=== PATIENT | male | born 1945 | race Caucasian/White ===

== ENCOUNTER 2018-06-07 18:39 | Observation (INO) | payer MEDICARE, BC ==
[2018-06-07 19:13] LABS: #Basophils 0.1 thou/uL (0.0-0.2); #Eosinphils 0.3 thou/uL (0.0-0.7); #Lymphocytes 2.4 thou/uL (1.20-3.40); #Monocytes 0.8 thou/uL (0.11-0.59); #Neutrophils 3.4 thou/uL (1.40-6.50); %Basophils 1.4 % (0.0-1.0); %Eosinophils 4.1 % (0.0-10.0); %Lymphocytes 35.1 % (21.0-51.0); %Monocytes 11.2 % (0.0-10.0); %Neutrophils 48.2 % (42.0-75.0); Hemoglobin 16.9 g/dL (14.0-18.0); Mean Corpuscular HGB CONC 33.3 g/dL (32.0-36.0); Mean Corpuscular Hemoglobin 29.5 pg (27.0-31.0); Mean Corpuscular Volume 88.6 fL (78.0-98.0); Mean Platelet Volume 8.1 fL (7.4-10.4); Platelet Count 182 thou/uL (130-400); RBC Distribution Width 12.8 % (11.5-14.5)
--- NOTE | 2018-06-07 19:26 | RAD ---
CHEST ONE VIEW: History: Palpitations. Comparison: 05-25-17 FINDINGS: Cardiac silhouette is magnified by projection. Pulmonary vasculature upper limits of normal. Mediasti num is midline. No lobar consolidation or evidence of pneumothorax. Dystrophic calcification inferior to the distal right clavicle is unchanged. IMPRESSION: Chronic type findings are stable. No active cardiopulmonary abnormalities are demonstrated. POS: [facility]
[2018-06-07 19:38] LABS: ALT (SGPT) 17 U/L (8-55); AST (SGOT) 22 U/L (5-34); Albumin 4.3 g/dL (3.4-4.8); Alkaline Phosphatase 72 U/L (40-150); Anion Gap 15 mmol/L (10-20); BUN (Urea Nitrogen) 25 mg/dL (8.4-25.7); Bilirubin, Total 0.4 mg/dL (0.2-1.2); CK (CPK) 112 U/L (30-200); Calc. Creatinine Clearance 0 mL/min (70-130); Calcium 9.4 mg/dL (7.8-10.44); Carbon Dioxide 19 mmol/L (23-31); Chloride 110 mmol/L (98-107); Estimated GFR-MDRD 48; Globulin 3.6 g/dL (2.4-3.5); Glucose 97 mg/dL (83-110); Magnesium 2.8 mg/dL (1.6-2.6); Potassium 4.5 mmol/L (3.5-5.1); Protein, Total 7.9 g/dL (5.8-8.1); Sodium 139 mmol/L (136-145)
[2018-06-07 19:39] LABS: CKMB 1.8 ng/mL (0-6.6); Troponin I Less than 0.010 ng/mL (< 0.028)
[2018-06-07] MEDS ORDERED: Milk Of Magnesia 30 ML UDCUP PO PRN (23:05)
[2018-06-07] MEDS ORDERED: Ondansetron HCl/PF 4 MG/2 ML Vial IVP PRN (23:05)
[2018-06-07] MEDS ORDERED: Ondansetron ODT 4 MG TAB PO PRN (23:05)
[2018-06-07] MEDS ORDERED: Bisacodyl 5 MG TAB PO PRN (23:05)
[2018-06-07] MEDS ORDERED: Acetaminophen 325 MG TAB PO PRN (23:05)
[2018-06-07] MEDS ORDERED: Senokot 8.6 MG TAB PO PRN (23:05)
[2018-06-08 00:05] LABS: Troponin I Less than 0.010 ng/mL (< 0.028)
[2018-06-08] MEDS: Sodium Chloride 0.9% 1,000 ML IV SCH ×2 (00:54→10:20)
[2018-06-08 01:01] VITALS: BMI 29.3
[2018-06-08 02:24] LABS: #Basophils 0.1 thou/uL (0.0-0.2); #Eosinphils 0.3 thou/uL (0.0-0.7); #Lymphocytes 2.3 thou/uL (1.20-3.40); #Monocytes 0.6 thou/uL (0.11-0.59); #Neutrophils 3.3 thou/uL (1.40-6.50); %Eosinophils 4.5 % (0.0-10.0); %Lymphocytes 35.1 % (21.0-51.0); %Monocytes 8.5 % (0.0-10.0); %Neutrophils 50.9 % (42.0-75.0); Mean Corpuscular HGB CONC 33.6 g/dL (32.0-36.0); Mean Corpuscular Hemoglobin 29.9 pg (27.0-31.0); Mean Corpuscular Volume 89.2 fL (78.0-98.0); Platelet Count 168 thou/uL (130-400); RBC Distribution Width 12.7 % (11.5-14.5); Red Blood Cell (RBC) Count 5.36 mill/uL (4.70-6.10); White Blood Cell (WBC) Count 6.5 thou/uL (4.8-10.8)
[2018-06-08 02:48] LABS: Troponin I Less than 0.010 ng/mL (< 0.028)
[2018-06-08 03:20] LABS: Albumin 3.9 g/dL (3.4-4.8); Anion Gap 12 mmol/L (10-20); BUN (Urea Nitrogen) 23 mg/dL (8.4-25.7); BUN/Creatinine Ratio 23.23; Calc. Creatinine Clearance 87 mL/min (70-130); Calcium 8.8 mg/dL (7.8-10.44); Carbon Dioxide 25 mmol/L (23-31); Chloride 107 mmol/L (98-107); Estimated GFR-MDRD 74; Glucose 144 mg/dL (83-110); Potassium 4.2 mmol/L (3.5-5.1); Sodium 140 mmol/L (136-145)
--- NOTE | 2018-06-08 06:52 | HP ---
CHIEF COMPLAINT: Palpitations. HISTORY OF PRESENT ILLNESS: This is a 73-year-old white male with no significant past medical history who presented with palpitations which per the patient started on the day of admission. The patient states that he had been working more than his usual self and he has not been drinking a lot of water and thinks that has probably triggered him to have these palpitations. In the past, patient states that he used to drink a lot of coffee and because of the coffee that he drinks a lot, his palpitations and arrhythmias has been associated with, but this time around patient states that he has not had any coffee, but rather he has been working too hard and he thinks that is the event that has triggered the symptoms of arrhythmias. REVIEW OF SYSTEMS: Positive for palpitations, anxiety, headache, otherwise as documented in the HPI, all systems were reviewed and are negative. PAST MEDICAL HISTORY: The patient has no past medical history. PAST SURGICAL HISTORY: Appendectomy and tonsillectomy. PSYCHIATRIC HISTORY: No psych history. SOCIAL HISTORY: Patient denies alcohol use, denies any illicit drug use. Denies smoking. FAMILY HISTORY: Reviewed and noncontributory. ALLERGIES: No known drug allergies. CURRENT MEDICATIONS: The patient takes aspirin 81 mg. PHYSICAL EXAMINATION: VITAL SIGNS: 157/69, pulse 59, respiratory rate of 16, temperature 98. GENERAL APPEARANCE: Patient appears his stated age, lying in bed comfortably, speaking in full sentences, does not appear to be in any acute distress. HEENT: Normocephalic, atraumatic. Pupils are equally round and reactive to light. Extraocular movements are intact. No scleral icterus. NECK: Supple. Trachea is midline. No JVD. LUNGS: Clear to auscultation bilaterally. No wheezing, no rales, no rhonchi is appreciated. CARDIAC: Occasional irregular heartbeat noted, otherwise no murmurs appreciated. No rubs, no gallops. ABDOMEN: Soft, nontender, nondistended. Bowel sounds are positive in all quadrants. No pulsatile masses. No guarding, no rigidity. BACK: Normal back. NEUROLOGIC: Cranial nerves II-XII grossly intact. No neurologic deficits noted. SKIN: Warm, dry, and intact. ED COURSE: Patient was given aspirin and normal saline. IMAGING DATA: Chest x-ray which was done on patient showed chronic type findings which are stable. No active cardiopulmonary process demonstrated. LABORATORY DATA: WBC 7.0, hemoglobin 16.9, hematocrit is 50.6, platelets 182. Sodium 139, potassium 4.5, chloride 110, carbon dioxide 19, creatinine is 1.43 and magnesium is 2.8. ASSESSMENT AND PLAN: 1. This is a 73-year-old male with no significant past medical history being admitted for symptomatic bradycardia. Cardiology has been consulted. We should admit the patient on telemetry and they will see the patient and they will start their recommendation. The patient has history of arrhythmias, so we have ordered an echo. We will follow up on the echo report. Patient will benefit from Electrophysiology consult. 2. Acute kidney injury most likely due to dehydration. At this point, we are going to give the patient some fluids since the patient has been working hard in the sun and the patient has not been drinking as much fluids. We will monitor the patient's creatinine. 3. Electrolyte abnormality. We will monitor patient's electrolytes. 4. Arrhythmias. Patient is having some bigeminies and some PVCs. We have put the patient on the monitor. We will follow up in the morning to see patient's rhythm and Cardiology is going to follow up with the patient and they will give us their recommendation. 5. DVT/GI prophylaxis. MTDD
[2018-06-08] MEDS: Famotidine/PF 20 mg/2ml Vial SLOW IVP SCH ×2 (08:26→20:48)
[2018-06-08] MEDS: Enoxaparin Sodium 40 MG/0.4 ML SYRINGE SC SCH (08:26)
--- NOTE | 2018-06-08 14:33 | PDOC.PN ---
- Subjective Encounter Start Date: 06/08/18 Encounter Start Time: 14:30 Mr. Mata was seen today in follow-up of palpitations. He does not have any complaints today. He has had some symptoms off and on through the day. - Objective Resuscitation Status: Resuscitation Status FULL:Full Resuscitation MAR Reviewed: Yes Vital Signs & Weight: Vital Signs (12 hours) Temp Pulse Resp BP Pulse Ox 06/08/18 11:52 97.4 F L 50 L 20 130/57 L 93 L 06/08/18 07:33 97.9 F 51 L 14 06/08/18 07:29 97.7 F 52 L 20 141/60 H 94 L 06/08/18 04:11 97.9 F 51 L 14 126/61 94 L Weight Weight 210 lb 5.136 oz I&O: 06/07/18 06/08/18 06/09/18 06:59 06:59 06:59 Intake Total 860 Output Total 600 Balance 260 Result Diagrams: 06/08/18 02:11 06/08/18 02:11 Phys Exam - Physical Examination HEENT: PERRLA Respiratory: no wheezing, no rales, no rhonchi, clear to auscultation bilateral Cardiovascular: RRR, no significant murmur, no rub HR is slow, with occasional PVC's , no gallop Gastrointestinal: soft, non-tender, no distention, positive bowel sounds Musculoskeletal: no edema Dx/Plan (1) Bradycardia Code(s): R00.1 - BRADYCARDIA, UNSPECIFIED Status: Acute (2) Frequent PVCs Code(s): I49.3 - VENTRICULAR PREMATURE DEPOLARIZATION Status: Acute (3) Acute renal injury due to hypovolemia Code(s): N17.9 - ACUTE KIDNEY FAILURE, UNSPECIFIED; E86.1 - HYPOVOLEMIA Status : Acute - Plan * Symptomatic Bradycardia with frequent PVC's- Echo is pending and await Cardiology input * Acute kidney injury- improved overnight.
--- NOTE | 2018-06-08 21:16 | CON ---
DATE OF CONSULTATION: 06/08/2018 HISTORY: Chapo Mata is a 73-year-old white male who has been noted in the past to have an arrhythmia. He states that seemed to be worse whenever he would drink caffeine as well as he would avoid that he would not have problems. It does not sound as if he has any palpitations, just when he felt his pulse, he would notice a skipped beat. 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 After 4 days of this, he noted that with lifting hay scarlett, he would become short of breath. He denied any chest, arm, neck, or jaw discomfort. Whenever he would feel short of breath, he would take his pulse and noticed that he was having the pauses in his heartbeat. Since he has been in the hospital as well as EKG in the emergency room, he has been noticed to have PVCs and at times couplets. PAST MEDICAL HISTORY: No history of hypertension, diabetes or hypercholesterolemia. MEDICATIONS: Aspirin daily, vitamin D3, EpiPen p.r.n., ibuprofen one tablet q.6 hourly p.r.n., Co-Q10 daily and multivitamin daily. He also takes a nasal inhaler from Dr. Holt and allergy shots. ALLERGIES: None. OPERATIONS: Appendectomy. PROCEDURES/OPERATIONS: Tonsillectomy. SOCIAL HISTORY: Does not smoke, he does not drink. FAMILY HISTORY: Negative for coronary artery disease. REVIEW OF SYSTEMS: Twelve point review of systems otherwise is unremarkable. PHYSICAL EXAMINATION: VITAL SIGNS: 123/58, pulse is 74. HEENT: PERRL. NECK: Supple. CHEST: Clear. CARDIAC: S1 and S2 are normal, without any S3, S4 or murmurs. Carotid upstrokes normal, without bruits. ABDOMEN: Normal bowel sounds, without tenderness. EXTREMITIES: Revealed no clubbing, cyanosis or edema. NEUROLOGIC: Grossly intact. SKIN: Warm and dry. LABORATORY AND X-RAY FINDINGS: EKG reveals normal sinus rhythm with ventricular ectopic beats in a trigeminal pattern. CBC is unremarkable. Sodium 140, potassium 4.2, chloride 107, carbon dioxide 25, BUN 23, creatinine 0.99. He is of note on admission, his creatinine was 1.43 prior to being hydrated. Magnesium is high at 2.8. Cardiac enzymes x3 are normal. TSH is normal. IMPRESSION: 1. Exertional dyspnea. 2. Frequent premature ventricular ectopic beats, sometimes ventricular couplets. PLAN: Echocardiogram will be performed to evaluate for possible left ventricular dysfunction. Also, he should undergo adenosine Cardiolite testing to rule out ischemic disease as a cause of his ventricular ectopy. It sounds as if this has been a longstanding problem. MTDD
[2018-06-09] MEDS: Sodium Chloride 0.9% 1,000 ML IV SCH ×2 (00:52→12:01)
[2018-06-09] MEDS ORDERED: Enoxaparin Sodium 40 MG/0.4 ML SYRINGE ONE ×2 (07:43→07:44)
[2018-06-09] MEDS: Famotidine/PF 20 mg/2ml Vial SLOW IVP SCH (08:00)
[2018-06-09] MEDS: Enoxaparin Sodium 40 MG/0.4 ML SYRINGE SC SCH (08:00)
--- NOTE | 2018-06-09 13:10 | NM ---
RADIONUCLIDE STRESS AND REST MYOCARDIAL PERFUSION SCAN WITH CT ATTENUATION CORRECTION AND SPECT IMAGI NG WITH LEFT VENTRICULAR WALL MOTION EVALUATION AND EJECTION FRACTION: HISTORY: Chest pain. Palpitations. FINDINGS: Lexiscan protocol. Stress and rest images show homogeneous uptake of radiotracer throughout the left ventricular myocardium. No focal perfusion defect or reversibility. QGS analysis of gated SPECT images shows no focal wall motion abnormalities. Left ventricular ejectio n fraction is calculated at 67%. IMPRESSION: 1. Normal myocardial perfusion scan. 2. Normal LVEF. POS: [facility]
[2018-06-09 13:28] VITALS: BP 131/69; TEMP 97.4
[2018-06-09] MEDS ORDERED: Regadenoson 0.4 MG/5 ML SYRINGE ONE (15:20)
--- NOTE | 2018-06-09 16:19 | PDOC.PN ---
- Subjective Encounter Start Date: 06/09/18 Encounter Start Time: 16:18 Mr. Mata was seen today in follow-up of bradycardia. He does not have any complaints today. He denies chest pain and palpitations. - Objective Resuscitation Status: Resuscitation Status FULL:Full Resuscitation MAR Reviewed: Yes Vital Signs & Weight: Vital Signs (12 hours) Temp Pulse Resp BP Pulse Ox 06/09/18 11:56 97.4 F L 58 L 18 131/69 94 L 06/09/18 08:00 97.6 F 49 L 18 138/61 93 L Weight Weight 210 lb 9.6 oz I&O: 06/08/18 06/09/18 06/10/18 06:59 06:59 06:59 Intake Total 860 1610 Output Total 600 Balance 260 1610 Result Diagrams: 06/08/18 02:11 06/08/18 02:11 Phys Exam - Physical Examination HEENT: PERRLA Respiratory: no wheezing, no rales, no rhonchi, clear to auscultation bilateral Cardiovascular: RRR, no significant murmur, no rub Gastrointestinal: soft, non-tender, no distention, positive bowel sounds Musculoskeletal: no edema Dx/Plan (1) Bradycardia Code(s): R00.1 - BRADYCARDIA, UNSPECIFIED Status: Acute (2) Frequent PVCs Code(s): I49.3 - VENTRICULAR PREMATURE DEPOLARIZATION Status: Acute (3) Acute renal injury due to hypovolemia Code(s): N17.9 - ACUTE KIDNEY FAILURE, UNSPECIFIED; E86.1 - HYPOVOLEMIA Status : Acute - Plan * Bradycardia- his heart rate has been at his usual baseline rate, and he has not been symptomatic with this * Stress test and Echo results were noted, and are negative * He is stable for discharge home.
--- NOTE | 2018-06-10 02:02 | DIS ---
DATE OF ADMISSION: 06/08/2018 DATE OF DISCHARGE: 06/09/2018 PRIMARY CARE PHYSICIAN: Donta Carolina M.D. DISCHARGE DISPOSITION: Home. PRIMARY DISCHARGE DIAGNOSES: 1. Bradycardia. 2. Frequent premature ventricular contractions. 3. Acute on chronic kidney disease. DISCHARGE MEDICATIONS: There was no change in his medications. He is to continue aspirin 81 mg gillian y, vitamin D3 1000 units daily, ibuprofen 200 mg q.6, multivitamin daily, CoQ10 100 mg daily, EpiPen as needed. PROCEDURES DONE DURING ADMISSION: The patient had an echocardiogram, which was essentially negative. The ejection fraction was estimated at 60%-65%. Left atrium was mildly dilated. There was normal right ventricular function. No significant valvular disease. He also had a nuclear stress test, whi ch was negative. CODE STATUS: Full code. ALLERGIES: No known drug allergies. HOSPITAL COURSE: Mr. Mata is a pleasant 73-year-old gentleman who presented to the emergency room after he was noted to be bradycardic. He was having frequent PVCs. He also notes that he had had a fairly hard week this week with lots of physical labor outside in the heat. He was also found to bajwa ve acute kidney injury due to dehydration. After being hydrated, his symptoms actually improved. He underwent echocardiogram and stress test, which was negative. He was seen by his putaway driver and i t was felt that since the stress test and echo were negative, there was no need for any pacemaker dani cement or further intervention and the patient was subsequently discharged home to have close outpati ent followup.
--- NOTE | 2018-06-10 13:33 | STRESS ---
Acquisition Time: 2018-06-09 09:37:31 Total Exercise Time: 00:01:00 Test Indications: Palpitations Medications: Protocol: LEXISCAN Max HR: 086 BPM 59% of Pred: 145 BPM Max BP: 148/100 mmHG Max Work Load: 1.0 METS THE PATIENT WAS INJECTED WITH LEXISCAN. HE DID NOT DEVELOP CHEST PAIN. THERE WAS NO SIGNIFICANT ST DEPRESSION. FREQUENT PVC'S WERE NOTED. AWAIT NUCLEAR IMAGES FOR DEFINITIVE DIAGNOSIS. Confirmed by ADILENE WHITLEY ([id number]), senior editor PRIYA LEMUS ([id number]) on 06/10/2018 1:32:48 PM Referred By: MD Mason POWERS Confirmed By:ADILENE WHITLEY
== END 2018-06-09 16:44 | disposition home or self-care (01) ==
LOC: ERS 18:39 → 2SW 23:05
PROVIDERS: ADMIT Internal Medicine; ATTEND Internal Medicine
DX: R00.2 Palpitations (principal); I49.3 Ventricular premature depolarization; E86.0 Dehydration; E86.1 Hypovolemia; N18.9 Chronic kidney disease, unspecified; N17.9 Acute kidney failure, unspecified; Z79.82 Long term (current) use of aspirin; Z79.899 Other long term (current) drug therapy
CPT/HCPCS: 36415; 71045; 78452; 80053; 80069; 82553; 83735; 84443; 84484; 85025; 93005; 93017; 93306; 96360; 96361; 96372; 96374; 96376; A4216; A9500; G0378; J1650; J2785; S0028

== ENCOUNTER 2018-08-04 15:35 | Outpatient (CLI) | payer MEDICARE, BC ==
[2018-08-04 17:00] LABS: #Basophils 0.1 thou/uL (0.0-0.2); #Eosinphils 0.3 thou/uL (0.0-0.7); #Lymphocytes 2.4 thou/uL (1.20-3.40); #Monocytes 0.9 thou/uL (0.11-0.59); #Neutrophils 4.5 thou/uL (1.40-6.50); %Basophils 1.4 % (0.0-1.0); %Eosinophils 3.4 % (0.0-10.0); %Lymphocytes 29.1 % (21.0-51.0); %Monocytes 10.9 % (0.0-10.0); %Neutrophils 55.2 % (42.0-75.0); Mean Corpuscular HGB CONC 32.6 g/dL (32.0-36.0); Mean Corpuscular Hemoglobin 28.7 pg (27.0-31.0); Mean Corpuscular Volume 88.2 fL (78.0-98.0); Mean Platelet Volume 7.6 fL (7.4-10.4); Platelet Count 209 thou/uL (130-400); RBC Distribution Width 12.6 % (11.5-14.5); Red Blood Cell (RBC) Count 5.93 mill/uL (4.70-6.10); White Blood Cell (WBC) Count 8.2 thou/uL (4.8-10.8)
[2018-08-04 17:03] LABS: PTT 30.2 SEC (22.9-36.1); Prothrombin Time 13.1 SEC (12.0-14.7)
[2018-08-04 17:23] LABS: ALT (SGPT) 13 U/L (8-55); AST (SGOT) 15 U/L (5-34); Albumin 4.4 g/dL (3.4-4.8); Alkaline Phosphatase 66 U/L (40-150); Anion Gap 14 mmol/L (10-20); BUN (Urea Nitrogen) 27 mg/dL (8.4-25.7); Bilirubin, Total 0.6 mg/dL (0.2-1.2); Calc. Creatinine Clearance 0 mL/min (70-130); Calcium 9.3 mg/dL (7.8-10.44); Carbon Dioxide 23 mmol/L (23-31); Chloride 107 mmol/L (98-107); Estimated GFR-MDRD 70; Globulin 2.9 g/dL (2.4-3.5); Glucose 96 mg/dL (83-110); Potassium 4.5 mmol/L (3.5-5.1); Protein, Total 7.3 g/dL (5.8-8.1); Sodium 139 mmol/L (136-145)
== END 2018-08-04 15:36 | disposition home or self-care (01) ==
LOC: LABBT 15:35
PROVIDERS: ATTEND Internal Medicine Cardiovascular Disease
DX: Z01.812 Encounter for preprocedural laboratory examination (principal); I47.2 Ventricular tachycardia
CPT/HCPCS: 80053; 85025; 85610; 85730

== ENCOUNTER 2018-08-07 05:42 | Day surgery (SDC) | payer MEDICARE, BC ==
[2018-08-04 15:52] VITALS: BMI 29.2
[2018-08-07] MEDS ORDERED: Lidocaine 1% (PF) 30 ML VIAL ONE (06:46)
[2018-08-07] MEDS ORDERED: Heparin 10,000 UNITS/1 ML VIAL ONE ×2 (06:49→09:53)
[2018-08-07] MEDS ORDERED: Nitroglycerin 100MG/250ML BOT 250 ML ONE (06:49)
[2018-08-07] MEDS ORDERED: Verapamil 5 MG/2 ML VIAL ONE (06:49)
[2018-08-07 07:46] LABS: Cardiac Risk 4.5 (Less than 4.5)
[2018-08-07] MEDS ORDERED: Fentanyl 100 MCG/2 ML VIAL ONE (08:59)
[2018-08-07] MEDS ORDERED: Midazolam HCl 2 mg/2 ml Vial ONE (08:59)
[2018-08-07] MEDS ORDERED: Nitroglycerin 4.9 GM Bottle ONE (09:52)
[2018-08-07] MEDS ORDERED: Iopamidol 370 76% 100 ML VIAL ONE (10:28)
--- NOTE | 2018-08-07 16:44 | EKG ---
Test Reason : POST STENT - LAD Blood Pressure : / mmHG Vent. Rate : 047 BPM Atrial Rate : 047 BPM P-R Int : 220 ms QRS Dur : 090 ms QT Int : 458 ms P-R-T Axes : 031 008 010 degrees QTc Int : 405 ms Marked sinus bradycardia with 1st degree A-V block Abnormal ECG When compared with ECG of 07-JUN-2018 18:40, Premature ventricular complexes are no longer Present ID interval has increased Confirmed by DR. Leonel BURNHAM ([id number]) on 08/07/2018 4:44:15 PM Referred By: NELI Confirmed By:DR. Leonel BURNHAM
== END 2018-08-07 13:38 | disposition home or self-care (01) ==
LOC: CCL 05:42
PROVIDERS: ATTEND Internal Medicine Cardiovascular Disease
PROC: 027034Z Dilation of Coronary Artery, One Artery with Drug-eluting Intraluminal Device, Percutaneous Approach (ICD-10-PCS; principal; 2018-08-07)
PROC: 4A023N7 Measurement of Cardiac Sampling and Pressure, Left Heart, Percutaneous Approach (ICD-10-PCS; 2018-08-07)
PROC: B2111ZZ Fluoroscopy of Multiple Coronary Arteries using Low Osmolar Contrast (ICD-10-PCS; 2018-08-07)
DX: I25.10 Atherosclerotic heart disease of native coronary artery without angina pectoris (principal); I49.3 Ventricular premature depolarization; I47.2 Ventricular tachycardia; E78.5 Hyperlipidemia, unspecified; I10 Essential (primary) hypertension; E78.00 Pure hypercholesterolemia, unspecified; Z79.82 Long term (current) use of aspirin; Z79.899 Other long term (current) drug therapy
CPT/HCPCS: 36415; 80061; 85347; 92928; 93005; 93458; 93798; 99152; 99153; C1769; C1874; C9600; J1644; J2001; J2250; J3010

== ENCOUNTER 2022-02-07 12:01 | Outpatient (CLI) | payer MEDICARE, BC ==
[2022-02-07 13:50] LABS: Hemoglobin 13.4 g/dL (13.5-17.5); Mean Corpuscular HGB CONC 32.4 g/dL (32.0-36.0); Mean Corpuscular Hemoglobin 28.6 pg (27.0-33.0); Mean Corpuscular Volume 88.3 fl (81.2-95.1); Platelet Count 253 10x3/uL (150-450); RBC Distribution Width 13.6 % (11.5-14.5); Red Blood Cell (RBC) Count 4.69 10x6/uL (4.32-5.72); White Blood Cell (WBC) Count 7.7 10x3/uL (3.5-10.5)
[2022-02-07 14:03] LABS: INR-International Normal Ratio 0.9; PTT 27.2 sec (22.0-33.0); Prothrombin Time 10.3 sec (9.5-12.1)
[2022-02-07 14:05] LABS: Anion Gap 15 mmol/L (10-20); BUN (Urea Nitrogen) 29 mg/dL (8.4-25.7); Calc. Creatinine Clearance 0 mL/min (70-130); Calcium 8.9 mg/dL (7.8-10.44); Carbon Dioxide 26 mmol/L (23-31); Chloride 105 mmol/L (98-107); Glucose 91 mg/dL (83-110); Potassium 4.8 mmol/L (3.5-5.1); Sodium 141 mmol/L (136-145)
[2022-02-07 22:46] LABS: SARS-CoV-2 PCR by NAA Not Detected (NotDetected)
== END 2022-02-07 12:02 | disposition home or self-care (01) ==
LOC: LABBT 12:01
PROVIDERS: ATTEND Urology
DX: Z01.812 Encounter for preprocedural laboratory examination (principal); Z20.822 Contact with and (suspected) exposure to COVID-19
CPT/HCPCS: 80048; 85027; 85610; 85730; U0003; U0005

== ENCOUNTER 2022-02-28 11:44 | Outpatient (CLI) | payer MEDICARE, BC ==
[2022-02-28 14:11] LABS: Hemoglobin 14.5 g/dL (13.5-17.5); Mean Corpuscular HGB CONC 32.1 g/dL (32.0-36.0); Mean Corpuscular Hemoglobin 28.2 pg (27.0-33.0); Mean Corpuscular Volume 87.9 fl (81.2-95.1); Mean Platelet Volume 10.8 fl (7.4-10.4); Platelet Count 196 10x3/uL (150-450); RBC Distribution Width 14.5 % (11.5-14.5); Red Blood Cell (RBC) Count 5.14 10x6/uL (4.32-5.72); White Blood Cell (WBC) Count 7.1 10x3/uL (3.5-10.5)
[2022-02-28 14:14] LABS: Anion Gap 16 mmol/L (10-20); BUN (Urea Nitrogen) 30 mg/dL (8.4-25.7); Calc. Creatinine Clearance 0 mL/min (70-130); Calcium 9.3 mg/dL (7.8-10.44); Carbon Dioxide 24 mmol/L (23-31); Chloride 107 mmol/L (98-107); Glucose 80 mg/dL (83-110); Potassium 4.6 mmol/L (3.5-5.1); Sodium 142 mmol/L (136-145)
[2022-02-28 14:19] LABS: INR-International Normal Ratio 0.9; PTT 26.8 sec (22.0-33.0); Prothrombin Time 10.3 sec (9.5-12.1)
[2022-02-28 20:43] LABS: SARS-CoV-2 PCR by NAA Not Detected (NotDetected)
== END 2022-02-28 11:45 | disposition home or self-care (01) ==
LOC: LABBT 11:44
PROVIDERS: ATTEND Urology
DX: Z01.818 Encounter for other preprocedural examination (principal); N13.30 Unspecified hydronephrosis; R31.0 Gross hematuria; Z20.822 Contact with and (suspected) exposure to COVID-19
CPT/HCPCS: 80048; 85027; 85610; 85730; 93005; U0003; U0005; 93010

== ENCOUNTER 2022-03-05 09:39 | Day surgery (SDC) | payer MEDICARE, BC ==
[2022-02-07 16:07] VITALS: BMI 30.7
[2022-03-05] MEDS ORDERED: Ioversol 68 % 50 ML VIAL ONE (09:54)
[2022-03-05] MEDS ORDERED: fentaNYL Citrate/PF 100 MCG/2 ML SYRINGE ONE (11:23)
[2022-03-05] MEDS ORDERED: Levofloxacin 500 mg/D5W 100 ml Premix Bag ONE (11:27)
[2022-03-05] MEDS ORDERED: PROPOFOL 200 MG/20 ML VIAL ONE (12:07)
[2022-03-05] MEDS ORDERED: PHENYLEPHRINE-NS 100 MCG/ML 10 ML SYRINGE ONE (12:07)
[2022-03-05] MEDS ORDERED: Glycopyrrolate 0.2 MG/ML 5 ML SYRINGE ONE (12:07)
[2022-03-05] MEDS ORDERED: Lidocaine 1% PF 5 ML VIAL ONE (12:07)
[2022-03-05] MEDS ORDERED: Ondansetron PF 4 MG/2 ML Vial ONE (12:07)
[2022-03-05] MEDS ORDERED: Dexamethasone 20 MG/5 ML VIAL ONE (12:07)
[2022-03-05] MEDS ORDERED: ePHEDrine 50 MG/ML VIAL ONE (12:07)
== END 2022-03-05 14:24 | disposition home or self-care (01) ==
LOC: SDC 09:39
PROVIDERS: ATTEND Urology
PROC: 0TB48ZX Excision of Left Kidney Pelvis, Via Natural or Artificial Opening Endoscopic, Diagnostic (ICD-10-PCS; principal; 2022-03-05)
PROC: 0T778DZ Dilation of Left Ureter with Intraluminal Device, Via Natural or Artificial Opening Endoscopic (ICD-10-PCS; 2022-03-05)
DX: N13.30 Unspecified hydronephrosis (principal); R31.0 Gross hematuria; N32.89 Other specified disorders of bladder; I10 Essential (primary) hypertension; I25.10 Atherosclerotic heart disease of native coronary artery without angina pectoris; Z79.82 Long term (current) use of aspirin; Z79.899 Other long term (current) drug therapy; Z95.5 Presence of coronary angioplasty implant and graft
CPT/HCPCS: 52007; 52332; 74420; C2617; 88104; 88112; 88305; J1100; J1956; J2405; J2704; J3490; Q9967

== ENCOUNTER 2022-03-20 12:08 | Outpatient (CLI) | payer MEDICARE, BC ==
[2022-03-20 12:59] LABS: Hemoglobin 15.4 g/dL (13.5-17.5); Mean Corpuscular HGB CONC 32.3 g/dL (32.0-36.0); Mean Corpuscular Hemoglobin 28.4 pg (27.0-33.0); Mean Corpuscular Volume 87.8 fl (81.2-95.1); Platelet Count 221 10x3/uL (150-450); RBC Distribution Width 14.3 % (11.5-14.5); Red Blood Cell (RBC) Count 5.43 10x6/uL (4.32-5.72); White Blood Cell (WBC) Count 8.6 10x3/uL (3.5-10.5)
[2022-03-20 13:26] LABS: INR-International Normal Ratio 0.9; PTT 25.2 sec (22.0-33.0); Prothrombin Time 10.3 sec (9.5-12.1)
[2022-03-20 13:28] LABS: Anion Gap 13 mmol/L (10-20); BUN (Urea Nitrogen) 24 mg/dL (8.4-25.7); Calc. Creatinine Clearance 0 mL/min (70-130); Calcium 9.4 mg/dL (7.8-10.44); Carbon Dioxide 28 mmol/L (23-31); Chloride 107 mmol/L (98-107); Glucose 78 mg/dL (83-110); Sodium 143 mmol/L (136-145)
== END 2022-03-20 12:09 | disposition home or self-care (01) ==
LOC: LABBT 12:08
PROVIDERS: ATTEND Urology
DX: Z01.812 Encounter for preprocedural laboratory examination (principal); Z20.822 Contact with and (suspected) exposure to COVID-19
CPT/HCPCS: 80048; 85027; 85610; 85730; 87086; U0003; U0005

== ENCOUNTER 2022-03-25 08:03 | Day surgery (SDC) | payer MEDICARE, BC ==
[2022-03-21 13:05] VITALS: BMI 29.0
[2022-03-25] MEDS ORDERED: Iopamidol 30 ML ONE (11:36)
[2022-03-25] MEDS ORDERED: Fentanyl 100 MCG/2 ML VIAL ONE (11:40)
[2022-03-25] MEDS ORDERED: Levofloxacin 500 mg/D5W 100 ml Premix Bag ONE (11:47)
[2022-03-25] MEDS ORDERED: Lidocaine 1% PF 5 ML VIAL ONE (11:50)
[2022-03-25] MEDS ORDERED: Ondansetron PF 4 MG/2 ML Vial ONE (11:50)
[2022-03-25] MEDS ORDERED: PROPOFOL 200 MG/20 ML VIAL ONE (11:50)
[2022-03-25] MEDS ORDERED: PHENYLEPHRINE-NS 100 MCG/ML 10 ML SYRINGE ONE (11:50)
[2022-03-25] MEDS ORDERED: Dexamethasone 20 MG/5 ML VIAL ONE (11:50)
[2022-03-25] MEDS ORDERED: ePHEDrine 50 MG/ML VIAL ONE (11:50)
[2022-03-25] MEDS ORDERED: Glycopyrrolate 0.2 MG/ML 5 ML SYRINGE ONE (11:50)
== END 2022-03-25 17:12 | disposition home or self-care (01) ==
LOC: SDC 08:03
PROVIDERS: ATTEND Urology
PROC: 0TB78ZX Excision of Left Ureter, Via Natural or Artificial Opening Endoscopic, Diagnostic (ICD-10-PCS; principal; 2022-03-25)
PROC: 0T778DZ Dilation of Left Ureter with Intraluminal Device, Via Natural or Artificial Opening Endoscopic (ICD-10-PCS; 2022-03-25)
DX: N28.89 Other specified disorders of kidney and ureter (principal); N13.30 Unspecified hydronephrosis; E83.119 Hemochromatosis, unspecified; I25.10 Atherosclerotic heart disease of native coronary artery without angina pectoris; Z79.2 Long term (current) use of antibiotics; Z79.899 Other long term (current) drug therapy; Z95.5 Presence of coronary angioplasty implant and graft
CPT/HCPCS: 52332; 52354; 74420; C2617; 88112; 88305; J1100; J1956; J2405; J2704; J3010; J3490; Q9967